=== PATIENT | female | born 1985 | race Asian ===

== ENCOUNTER 2019-09-28 17:04 | Emergency (ER) | payer OTHER ==
[~2019-09-28] VITALS: Ht 157.5 cm; Wt 60.5 kg
[2019-09-28] MEDS ORDERED: IBUP-1506 PO (17:14)
[2019-09-28 18:00] VITALS: BP 118/77
[2019-09-28] MEDS ORDERED: ACETAMINOPHEN 500 MG TABLET PO ONE (18:15)
== END 2019-09-28 19:10 | disposition home or self-care (01) ==
LOC: EMS 17:06
DX: N61.0 Mastitis without abscess (principal); J45.909 Unspecified asthma, uncomplicated